=== PATIENT | female | born 1980 | race Caucasian/White ===

== ENCOUNTER 2017-04-12 15:56 | Emergency (ER) | payer BC ==
[2017-04-12 16:07] VITALS: BP 124/80
--- NOTE | 2017-04-12 17:23 | UC ---
Throat Pain/Nasal Ismael HPI - HPI Summary HPI Summary: TEN DAYS OF SINUS PRESSURE, HEADACHE, SORE THROAT, AND LEFT EAR PAIN AND RINGING. NO FEVER. NO NECK PAIN. NO COUGH. - History of Current Complaint Chief Complaint: UCEar Stated Complaint: EAR PAIN,SORE THROAT,HEADACHE Time Seen by Provider: 04/12/17 17:08 Hx Obtained From: Patient Hx Last Menstrual Period: 04/03/17 Onset/Duration: Gradual Onset, Lasting Weeks, Still Present Severity: Moderate Cough: Nonproductive Associated Signs & Symptoms: Positive: Hoarseness, Sinus Discomfort, Nasal Discharge - Epiglottits Risk Factors Epiglottis Risk Factors: Negative - Allergies/Home Medications Allergies/Adverse Reactions: Allergies Allergy/AdvReac Type Severity Reaction Status Date / Time No Known Allergies Allergy Verified 04/12/17 16:07 Home Medications: Home Medications Ibuprofen [Ibuprofen 200 MG] 200 mg PO 04/12/17 [History Confirmed 04/12/17] PMH/Surg Hx/FS Hx/Imm Hx Previously Healthy: Yes - Surgical History Surgical History: Yes Surgery Procedure, Year, and Place: C SECTION 2010. WISDOM TEETH 2002 - Family History Known Family History: Negative: Respiratory Disease - Social History Occupation: Employed Full-time Lives: With Family Alcohol Use: None Substance Use Type: None Smoking Status (MU): Never Smoked Tobacco - Immunization History Most Recent Tetanus Shot: 2012 Review of Systems Constitutional: Negative Skin: Negative Eyes: Negative ENT: Sore Throat, Ear Ache, Nasal Discharge Cardiovascular: Negative Gastrointestinal: Negative Genitourinary: Negative Motor: Negative Neurovascular: Negative Musculoskeletal: Negative Neurological: Negative Psychological: Negative All Other Systems Reviewed And Are Negative: Yes Physical Exam Triage Information Reviewed: Yes Appearance: Well-Appearing, No Pain Distress, Well-Nourished Vital Signs: Initial Vital Signs Temp 99.5 F 04/12/17 16:07 Pulse 77 04/12/17 16:07 Resp 16 04/12/17 16:07 BP 124/80 04/12/17 16:07 Pulse Ox 100 04/12/17 16:07 Vital Signs Reviewed: Yes Eye Exam: Normal Eyes: Positive: Conjunctiva Clear ENT: Positive: Hearing grossly normal, Pharyngeal erythema, Nasal congestion, TM bulging, TM dull, TM red - LEFT EAR Dental Exam: Normal Neck exam: Normal Neck: Positive: Supple, Nontender, No Lymphadenopathy Respiratory Exam: Normal Respiratory: Positive: Chest non-tender, Lungs clear, Normal breath sounds, No respiratory distress, No accessory muscle use Cardiovascular Exam: Normal Cardiovascular: Positive: RRR, No Murmur, Pulses Normal Abdominal Exam: Normal Musculoskeletal Exam: Normal Musculoskeletal: Positive: Strength Intact, ROM Intact Neurological Exam: Normal Psychological Exam: Normal Psychological: Positive: Normal Response To Family Skin Exam: Normal Throat Pain/Nasal Course/Dx - Differential Dx/Diagnosis Differential Diagnosis/HQI/PQRI: Pharyngitis, Sinusitis, URI Provider Diagnoses: SINUSITIS; LEFT OTITIS MEDIA; PHARYNGITIS Discharge - Discharge Plan Condition: Stable Disposition: HOME Prescriptions: Amoxicillin/Clavulanate TAB* [Augmentin TAB 875*] 875 mg PO BID #20 tab Fluticasone NASAL SPRAY 50MCG* [Flonase NASAL SPRAY 50MCG*] 2 spray BOTH NARES DAILY #1 btl Patient Education Materials: Sinusitis (ED), Otitis Media (ED) Referrals: Ministerio Yeh MD [Primary Care Provider] -
== END 2017-04-12 17:27 | disposition home or self-care (01) ==
LOC: UCEAST 15:56
DX: J32.9 Chronic sinusitis, unspecified (principal); H66.92 Otitis media, unspecified, left ear; J02.9 Acute pharyngitis, unspecified
CPT/HCPCS: 99212; G0463

== ENCOUNTER 2019-09-25 11:12 | Emergency (ER) | payer BC ==
--- OUTSIDE RECORDS SUMMARY | 2019-09-25 11:18 | XMS REPORT | Continuity of Care Document ---
:1980 Author Organization [facility] Care Team Providers Name Role Phone SCOT CANDELARIO Admitting Physician SCOT CANDELARIO Attending Physician Allergies and Intolerances No Allergy Data in the System Medications No Known Medications Medications At Time Of Discharge No data in the system Problems No Data in the system Procedures No data in the system Results Laboratory Results Order: AMYLASE Specimen Source: Body Site : Legend: (G,H) = High, (GG,HH,CH,#H) = Above High Threshold, (#,L) = Low, (##, CL,#L,LL) = Below Low Threshold, (C,CC,CA,#A,A) = Abnormal LOINC Test Result Flag Range Units Date 1799-03 1Amylase Ur-cCn 84 25-125 U/L 09/17/2019 16:30 Performing Lab Footnotes:[facility] - [id number] - [address] [place] [address] N[place]RO[place] Order: CBC DIFF Specimen Source: Body Site: Legend: (G,H) = High, (GG, HH,CH,#H) = Above High Threshold, (#,L) = Low, (##,CL,#L,LL) = Below Low Threshold, (C,CC,CA,#A,A) = Abnormal LOINC Test Result Flag Range Units Date 6690-2 1WBC # Bld Auto 5.9 4.8-10.8 K/uL 09/17/2019 16:30 27892-9 1RBC # Bld 4.50 4.20-5.40 M/uL 09/17/2019 16:30 718-7 1Hgb Bld-mCnc 13.8 12.0-16.0 gm/dL 09/17/2019 16:30 4544-3 1Hct VFr Bld Auto 40.7 36.0-48.0 % 09/17/2019 16:30 787-2 1MCV RBC Auto 90.4 80.0-100.0 fL 09/17/2019 16:30 77713-5 1MCHC RBC-mCnc 34.0 30.0-36.5 % 09/17/2019 16:30 71735-9 1MCH RBC Qn 30.8 27.0-34.0 pg 09/17/2019 16:30 15738-4 1RDW RBC 11.5 11.0-15.0 % 09/17/2019 16:30 777-3 1Platelet # Bld Auto 227 130-450 K/uL 09/17/2019 16:30 56059-5 1PMV Bld Auto 7.7 6.0-12.0 fL 09/17/2019 16:30 751-8 1Neutrophils # Bld Auto 57 37-80 % 09/17/2019 16:30 50812-5 1Lymphocytes NFr Bld 30 10-50 % 09/17/2019 16:30 5905-5 1Monocytes NFr Bld Auto 9 0-12 % 09/17/2019 16:30 05055-6 1Eosinophil # Bld 4 <=8 % 09/17/2019 16:30 704-7 1Basophils # Bld Auto 0 <=3 % 09/17/2019 16:30 04394-0 1Neutrophils # Bld 3.3 1.8-8.6 K/uL 09/17/2019 16:30 731-0 1Lymphocytes # Bld Auto 1.7 0.5-5.0 K/uL 09/17/2019 16:30 742-7 1Monocytes # Bld Auto 0.5 0.0-1.3 K/uL 09/17/2019 16:30 80810-0 1Eosinophil # Bld 0.2 0.0-0.9 K/uL 09/17/2019 16:30 704-7 1Basophils # Bld Auto 0.0 0.0-0.3 K/ul 09/17/2019 16:30 Performing Lab Footnotes:[facility] - [id number] - [address] [place] [address] N[place]ROE Order: COMPREHENSIVE PANEL Specimen Source: Body Site: Legend: (G,H) = High, (GG,HH,CH,#H) = Above High Threshold, (#,L) = Low, (##,CL,#L,LL) = Below Low Threshold, (C,CC,CA,#A,A) = Abnormal LOINC Test Result Flag Range Units Date 2951-2 1Sodium SerPl-sCnc 139 136-145 mmol/L 09/17/2019 16:30 2823-3 1Potassium SerPl-sCnc 4.4 3.5-5.2 mmol/L 09/17/2019 16:30 5-0 1Chloride SerPl-sCnc 107 100-108 mmol/L 09/17/2019 16:30 8-9 1CO2 SerPl-sCnc 23 21-32 mmol/L 09/17/2019 16:30 2345-7 1Glucose SerPl-mCnc 112 H 70-100 mg/dL 09/17/2019 16:30 3094-0 1BUN SerPl-mCnc 14 7-21 mg/dL 09/17/2019 16:30 2160-0 1Creat SerPl-mCnc 1.1 0.6-1.3 mg/dL 09/17/2019 16:30 Interpretive Bonnie: 1Normal Kidney Function or Mild Disease - GFR >OR= 60 Chronic Kidney Disease - GFR 15-59 Renal Failure - GFR < 15 GFR not calculated on patients under 18 years of age. Calculated (estimated) GFR is based on the MDRD Study equation, which assumes a steady state for creatinine. Estimated GFR may not be appropriate for medication dosing. 32437-1 1Ca-I SerPl-mCnc 9.4 8.5-10.8 mg/dL 09/17/2019 16:30 81243-4 1GFR/BSA.pred SerPl-ArVRat 56 09/17/2019 16:30 50575-2 1Bilirub Bld-mCnc 0.4 0.0-1.2 mg/dL 09/17/2019 16:30 2885-2 1Prot SerPl-mCnc 7.3 6.4-8.2 gm/dL 09/17/2019 16:30 1751-7 1Albumin SerPl-mCnc 4.2 3.4-4.8 gm/dL 09/17/2019 16:30 6768-6 1ALP SerPl-cCnc 88 40-150 U/L 09/17/2019 16:30 1742-6 1ALT SerPl-cCnc 24 0-55 U/L 09/17/2019 16:30 1920-8 1AST SerPl-cCnc 34 5-37 U/L 09/17/2019 16:30 Performing Lab Footnotes:[facility] - [id number] - [address] [place] [address] BRUCE FER Order: LIPASE Specimen Source: Body Site: Legend: (G,H) = High, (GG,HH, CH,#H) = Above High Threshold, (#,L) = Low, (##,CL,#L,LL) = Below Low Threshold , (C,CC,CA,#A,A) = Abnormal LOINC Test Result Flag Range Units Date 3040-3 1Lipase SerPl-cCnc 59 8-78 U/L 09/17/2019 16:30 Performing Lab Footnotes:[facility] - [id number] - [address] [place] [address] NADEGE [id number] Order: MAGNESIUM Specimen Source: Body Site: Legend: (G,H) = High, (GG, HH,CH,#H) = Above High Threshold, (#,L) = Low, (##,CL,#L,LL) = Below Low Threshold, (C,CC,CA,#A,A) = Abnormal LOINC Test Result Flag Range Units Date 69625-3 1Magnesium SerPl-mCnc 2.1 1.7-2.6 mg/dL 09/17/2019 16:30 Performing Lab Footnotes:[facility] - [id number] - [address] [place] [address] NADEGE [id number] Order: PT/INR Specimen Source: Body Site: Legend: (G,H) = High, (GG,HH, CH,#H) = Above High Threshold, (#,L) = Low, (##,CL,#L,LL) = Below Low Threshold , (C,CC,CA,#A,A) = Abnormal LOINC Test Result Flag Range Units Date 5902-2 1PT Time PPP 11.9 9.4-12.4 sec 09/17/2019 16:30 6301-6 1INR PPP 1.1 09/17/2019 16:30 Interpretive Bonnie: 1 INR INTERPERTATION 2.0-3.0 THERAPEUTIC MONITORING 2.5-3.5 HEART VALVE REPLACEMENT Performing Lab Footnotes:[facility] - [id number] [place] [address] NADEGE MONROE Order: PTT Specimen Source: Body Site: Legend: (G,H) = High, (GG,HH,CH, #H) = Above High Threshold, (#,L) = Low, (##,CL,#L,LL) = Below Low Threshold, (C ,CC,CA,#A,A) = Abnormal LOINC Test Result Flag Range Units Date 3173-2 1aPTT Time Bld 33.1 25.6-36.4 sec 09/17/2019 16:30 Performing Lab Footnotes:[facility] - [id number] - [address] [place] [address] [place] MONRO[place] Order: TROPONIN I Specimen Source: Body Site: Legend: (G,H) = High, (GG ,HH,CH,#H) = Above High Threshold, (#,L) = Low, (##,CL,#L,LL) = Below Low Threshold, (C,CC,CA,#A,A) = Abnormal LOINC Test Result Flag Range Units Date 43503-4 1Troponin I SerPl-mCnc 0.00 0.00-0.04 ng/mL 09/17/2019 16:30 Interpretive Bonnie: 1 TROPONIN INTERPRETATION 0.00 - 0.04 ng/ml Normal 0.05 - 0.29 ng/ml [place], Uncertain for AMI Greater than 0.30 ng/ml Suggestive of AMI Performing Lab Footnotes:[facility] - [id number] - [address] [place] [address] [place] Radiology Results Order: CHEST PORTABLE-SINGLEExam Completion Date:09/17/2019 16:4809/17/2019 5:45 PM CHEST X-RAY CLINICAL INFORMATION: -- CHEST PAIN, UNSPECIFIED COMPARISON: None. PROCEDURE: A single frontal projection of the chest was obtained. FINDINGS: Tubes and Catheters: None. Central Airways: Normal. Lungs: Normal. Pleura/Pleural space: Normal. Heart and Mediastinum: Normal. Additional Findings: No acute or aggressive osseous changes noted. Mild elevation of the left hemidiaphragm. IMPRESSION: No acute cardiopulmonary disease. END OF IMPRESSION [facility] submits Radiology results to [facility] and [facility] then provides those same results to [facility]. All results are available to [facility] and [facility] provider portal users. [facility] DICOM images are availableto the [facility] provider portal users only. [facility] DICOM images are notavailable to the [facility] provider portal users. There is no current [facility] cross-[facility] functionality allowing images to be available through the [facility] to [facility] connectivity. Electronically signed By:Tami Amaya M.D. Read By: TAMI AMAYA Date: 09/17/2019 17:54 Social History Code Code System Social History Observation Description Dates Observed 934100504 SNOMED CT Current Smoking Status Never smoker UNK AdministrativeGender Sex Assigned At Unknown Vital Signs Code Code System Vitals Value Date 8865-8 LOINC Pulse Rate 56 {beats}/min 09/17/2019 9279-1 LOINC Respiratory Rate 18 /min 09/17/2019 60821-5 INC O2% BldC Oximetry 99 % 09/17/2019 8480-6 LOINC BP Systolic 114 mm[Hg] 09/17/2019 8462-4 LOINC BP Diastolic 77 mm[Hg] 09/17/2019 8310-5 LOINC Body Temperature 98 [degF] 09/17/2019 8302-2 LOINC Height 60 [in_i] 09/17/2019 19313-4 LOINC Weight 54 kg 09/17/2019 3140-1 INC Body surface area Derived from formula 1.5 m2 09/17/2019 36509-4 [facility] BMI (Body Mass Index) 23.3 kg/m2 09/17/2019 Goals Section No data in the system Health Concerns No data in the systemEncounter Diagnosis Date Code Code System Diagnosis Status R07.9 ICD10 CHEST PAIN UNSPECIFIED Active Advance Directives *RHIO - CONSENT IS YES Directive Type Effective Date Newspaper Photographer Notes Supporting Document Name Address Phone No Directive Type 09/17/2019 4:21:18 Not Specified Not Specified Not Specified None No specified PM Encounters Encounter Diagnosis Location Date CHEST PAIN UNSPECIFIED [facility] 09/17/2019 Family History Family history not obtained Functional Status Code Functional Condition Code System Date Status Independent adls SNOMED CT 09/17/2019 Active Appears well nourished/hydrated SNOMED CT 09/17/2019 Active Immunizations No data in the system Medical Equipment No data in the system Mental Status Code Cognitive Condition Code System Date Status Moves all extremities SNOMED CT 09/17/2019 Active Moderate distress SNOMED CT 09/17/[address] 09/17/[address] SN[address] 09/17/2019 Active 897188581 Mentally alert SNOMED CT 09/17/2019 Active Assessment and Plan Assessments No data in the systemPlan Of Treatment No data in the systemPending Tests No data in the system Hospital Discharge Instructions No data in the system Reason for Visit Reason for Visit Abdominal Pain
[2019-09-25 11:53] VITALS: BP 112/71
[2019-09-25] MEDS ORDERED: Ondansetron ODT TAB* 4 MG PO ONE (12:01)
[2019-09-25] MEDS ORDERED: Ketorolac INJ* 30 MG/ML 1 ML VIAL IM ONE (12:01)
--- NOTE | 2019-09-25 12:03 | ED ---
GI/ HPI - HPI Summary HPI Summary: 39 year old female presents with abdominal pain today. She states she first noticed the pain an hour after eating thanksgiving dinner. States that she was seen in ER at [place] and wanted to do an u/s but she left. She states that pain since then has been intermittent. She has been having occasionally nausea and vomiting. No fevers. no history of acid reflux. has had a before. no urinary symptoms. - History of Current Complaint Chief Complaint: UCAbdominalPain Time Seen by Provider: 09/25/19 11:51 Stated Complaint: ABDOMINAL PAIN, AND NAUSEA Hx Last Menstrual Period: 09/11/19 Pain Intensity: 5 - Allergy/Home Medications Allergies/Adverse Reactions: Allergies Allergy/AdvReac Type Severity Reaction Status Date / Time No Known Allergies Allergy Verified 09/25/19 11:44 Home Medications: Home Medications Calcium Carb/Magnesium Hydrox [Rolaids Chewable Tablet] 1 each PO ONCE 09/25/19 [History Confirmed 09/25/19] PMH/Surg Hx/FS Hx/Imm Hx Endocrine/Hematology History: Denies: Hx Diabetes Cardiovascular History: Denies: Hx Hypertension, Hx Pacemaker/ICD History: Denies: Hx Renal Disease Sensory History: Denies: Hx Hearing Aid Psychiatric History: Denies: Hx Panic Disorder - Cancer History Hx Chemotherapy: No Hx Radiation Therapy: No - Surgical History Surgery Procedure, Year, and Place: C SECTION 2010. WISDOM TEETH 2002 Infectious Disease History: No Infectious Disease History: Denies: Traveled Outside the [place] in Last 30 Days - Family History Known Family History: Negative: Respiratory Disease - Social History Alcohol Use: Occasionally Substance Use Type: Reports: None Smoking Status (MU): Never Smoked Tobacco Review of Systems Negative: Fever Negative: Chest Pain Negative: Shortness Of Breath Positive: Abdominal Pain, Vomiting, Nausea. Negative: Diarrhea All Other Systems Reviewed And Are Negative: Yes Physical Exam Triage Information Reviewed: Yes Vital Signs On Initial Exam: Initial Vitals Temp Pulse Resp BP Pulse Ox 99.4 F 42 18 112/71 100 09/25/19 11:45 09/25/19 11:45 09/25/19 11:45 09/25/19 11:45 09/25/19 11:45 Vital Signs Reviewed: Yes Appearance: Positive: Well-Appearing Skin: Positive: Warm, Dry Head/Face: Positive: Normal Head/Face Inspection Eyes: Positive: Normal, Conjunctiva Clear ENT: Positive: Pharynx normal Respiratory/Lung Sounds: Positive: Clear to Auscultation, Breath Sounds Present Cardiovascular: Positive: Normal, RRR Abdomen Description: Positive: Soft, Other: - tenderness in RUQ Bowel Sounds: Positive: Present Musculoskeletal: Positive: Normal Neurological: Positive: Normal Psychiatric: Positive: Normal Diagnostics - Vital Signs Vital Signs Temp Pulse Resp BP Pulse Ox 09/25/19 11:45 99.4 F 42 18 112/71 100 - Laboratory Lab Results: Lab Results 09/25/19 09/25/19 Range/Units 11:45 11:45 POC Urine Color Y Yellow POC Urine Clarity C Clear POC Urine pH 7 7.5 (5-9) POC Ur Specif [place] 1.000 L 1.015 (1.010-1.030) POC Urine Protein N Negative (Negative) POC Ur Glucose (UA) N Negative (Negative) POC Urine Ketones N Negative (Negative) POC Urine Blood N Negative (Negative) POC Urine Nitrite N Negative (Negative) POC Urine Bilirubin N Negative (Negative) POC Urine Urobilinogen 0 0.2 (Negative) POC U Leukocyte Esteras N Negative (Negative) Lab Statement: Any lab studies that have been ordered have been reviewed, and results considered in the medical decision making process. - Ultrasound No standard instances Ultrasound Interpretation Completed By: Radiologist Summary of Ultrasound Findings: IMPRESSION: EQUIVOCAL RESULTS. THE BLADDER IS NOT SIGNIFICANTLY DILATED AND THERE IS NO PERICHOLECYSTIC FLUID OR BILIARY DUCTAL DILATATION. HOWEVER, THE GALLBLADDER WALL IS AT THE UPPER LIMITS OF NORMAL IN THICKNESS 0.3 CM AND THE PATIENT HAS PAIN WITH SCANNING. IF CLINICALLY EQUIVOCAL, A HIDA SCAN COULD BE PERFORMED. Re-Evaluation - Re-Evaluation First Eval Re-Evaluation Time: 13:14 Change: Improved Comment: feeling better GIGU Course/Dx - Course Course Of Treatment: 39 year old female presents with abdominal pain today. She states she first noticed the pain an hour after eating thanksgiving dinner. States that she was seen in ER at [place] and wanted to do an u/s but she left. She states that pain since then has been intermittent. She has been having occasionally nausea and vomiting. No fevers. no history of acid reflux. has had a before. no urinary symptoms. on exam tenderness in RUQ. gallbladder u/s inconclusive. told if develop fever or worsening vomiting to go to ER. this could also be gastritis so will try course of omperazole. gave referral to GI. patient understand and agrees with plan. - Diagnoses Differential Diagnoses - Female: Cholelithiasis, Cholecystitis, Gastritis Provider Diagnoses: Epigastric pain Discharge ED - Sign-Out/Discharge Documenting (check all that apply): Patient Departure All imaging exams completed and their final reports reviewed: Yes - Discharge Plan Condition: Good Disposition: HOME Prescriptions: Omeprazole 20 mg PO DAILY #14 capsule. Ondansetron ODT TAB* [Zofran 4 MG Odt TAB*] 4 mg PO Q6H PRN #20 tab.odt PRN Reason: Nausea Patient Education Materials: Epigastric Pain (ED) Referrals: Ministerio Yeh MD [Primary Care Provider] - Khoi Stapleton MD [Medical Doctor] - Additional Instructions: Take omeprazole once a day Take Zofran every 6 hours as needed for nausea take tyenlol every 6 hours as needed for pain Follow up with GI Return to ED if develop fever or any new or worsening symptoms - Billing Disposition and Condition Condition: GOOD Disposition: Home
== END 2019-09-25 13:28 | disposition home or self-care (01) ==
LOC: UCEAST 11:12
DX: R10.13 Epigastric pain (principal); R10.811 Right upper quadrant abdominal tenderness; R11.2 Nausea with vomiting, unspecified
CPT/HCPCS: 76705; 81003; 81025; 99212; A9270-GY; G0463; J1885